=== PATIENT | male | born 1965 | race Caucasian/White ===

== ENCOUNTER 2016-04-29 16:00 | Outpatient (RCR) | payer OTHER | END 2016-04-30 | LOC: M OUTALCOH 16:00 | PROVIDERS: ATTEND Psychiatry & Neurology Psychiatry | DX: F15.20 Other stimulant dependence, uncomplicated (principal); F12.20 Cannabis dependence, uncomplicated ==

== ENCOUNTER 2016-05-22 14:00 | Outpatient (RCR) | payer OTHER | END 2016-05-28 | LOC: M OUTALCOH 14:00 | PROVIDERS: ATTEND Psychiatry & Neurology Psychiatry | DX: F15.20 Other stimulant dependence, uncomplicated (principal); F12.20 Cannabis dependence, uncomplicated ==

== ENCOUNTER 2016-06-27 14:00 | Outpatient (RCR) | payer OTHER | END 2016-06-28 | LOC: M OUTALCOH 14:00 | PROVIDERS: ATTEND Psychiatry & Neurology Psychiatry | DX: F15.20 Other stimulant dependence, uncomplicated (principal); F12.20 Cannabis dependence, uncomplicated ==

== ENCOUNTER → 2016-07-19 | Outpatient (CLI) | payer OTHER | LOC: M OUTALCOH 08:52 | PROVIDERS: ATTEND Psychiatry & Neurology Psychiatry | DX: Z13.9 Encounter for screening, unspecified (principal); F15.20 Other stimulant dependence, uncomplicated; F12.20 Cannabis dependence, uncomplicated ==

== ENCOUNTER → 2016-09-20 | Outpatient (CLI) | payer OTHER ==
--- NOTE | 2016-09-20 15:45 | REP ---
REASON: Possible TB. COMPARISON: 05/26/2015. FINDINGS: The superior mediastinal structures are midline. The cardiac silhouette is unremarkable in size, shape, and position. The diaphragmatic surfaces of the lungs are regular, and the costophrenic angles are clear. The pulmonary carnes are clear. The imaged osseous structures are intact. IMPRESSION: There is no acute cardiopulmonary disease. No change from the prior exam. COMMENT: If clinical suspicion is high, CT is more sensitive. Signed by Arnaud Benitez DO 09/20/2016 04:24 P
== END ==
LOC: M WUC 14:29
PROVIDERS: ATTEND Surgery
DX: Z11.1 Encounter for screening for respiratory tuberculosis (principal)

== ENCOUNTER → 2016-09-27 | Outpatient (CLI) | payer OTHER ==
--- NOTE | 2016-09-27 14:27 | REP ---
Clinical: Pain. Technique: Internal rotation, external rotation, and Y view of the right shoulder. Comparison: 07/15/2014. Findings: Acromioclavicular and glenohumeral joints are intact and stable/normal for age. Calcifications adjacent to the greater tuberosity consistent with calcific tendinopathy and essentially unchanged. Impression: Calcific tendinopathy similar to prior examination. Signed by Feliciano Vergara MD 09/27/2016 02:19 P
== END ==
LOC: M WUC 13:49
PROVIDERS: ATTEND Physician Assistant Medical
DX: M75.31 Calcific tendinitis of right shoulder (principal)

== ENCOUNTER 2017-06-20 21:38 | Emergency (ER) | payer OTHER ==
[2017-06-21 00:21] LABS: CK-MB VALUE MASS < 1.0 NG/ML (<3.6); CPK CREATINE PHOSPHOKINASE 77 U/L (39-308); MB/CK RELATIVE INDEX 1.29 (< OR =4); TROPONIN I < 0.02 NG/ML (< 0.10)
== END 2017-06-21 00:58 | disposition home or self-care (01) ==
LOC: M ED 06-21 00:58
DX: R00.2 Palpitations (principal); J84.10 Pulmonary fibrosis, unspecified
CPT/HCPCS: 70450

== ENCOUNTER → 2018-10-09 | Outpatient (CLI) | payer SELFPAY | LOC: M OUTALCOH 08:27 | PROVIDERS: ATTEND Psychiatry & Neurology Psychiatry | DX: F15.10 Other stimulant abuse, uncomplicated (principal) ==

== ENCOUNTER → 2018-10-28 | Outpatient (RCR) | payer SELFPAY | LOC: M OUTALCOH 10-16 08:39 | PROVIDERS: ATTEND Psychiatry & Neurology Psychiatry | DX: F15.20 Other stimulant dependence, uncomplicated (principal) ==

== ENCOUNTER 2018-11-24 08:00 | Outpatient (RCR) | payer MEDICAID, SELFPAY | END 2018-11-28 | LOC: M OUTALCOH 08:00 | PROVIDERS: ATTEND Psychiatry & Neurology Psychiatry | DX: F15.20 Other stimulant dependence, uncomplicated (principal) ==

== ENCOUNTER 2018-12-10 09:00 | Outpatient (RCR) | payer MEDICAID | END 2018-12-28 | LOC: M OUTALCOH 09:00 | PROVIDERS: ATTEND Psychiatry & Neurology Psychiatry | DX: F15.20 Other stimulant dependence, uncomplicated (principal) ==

== ENCOUNTER → 2019-03-17 | Outpatient (CLI) | payer OTHER ==
--- NOTE | 2019-03-18 08:28 | REP ---
Two-view chest: 03/07/2019. Indication: Possible TB. Comparison: 09/20/2016. Findings: There is no air space consolidation. There is no pleural effusion or pneumothorax. The cardiomediastinal silhouette is unremarkable. Impression: No acute cardiopulmonary process. There is no radiographic evidence of tuberculosis. Electronically Signed by Ziyad Gunderson DO 03/18/2019 08:19 A
== END ==
LOC: M WUC 10:44
PROVIDERS: ATTEND Surgery
DX: A15.9 Respiratory tuberculosis unspecified (principal)

== ENCOUNTER → 2021-05-11 | Outpatient (CLI) | payer OTHER | LOC: M RAD 11:11 | PROVIDERS: ATTEND Physician Assistant | DX: M79.671 Pain in right foot (principal); Y30.XXXA Falling, jumping or pushed from a high place, undetermined intent, initial encounter; Y92.9 Unspecified place or not applicable; Y93.9 Activity, unspecified; Y99.9 Unspecified external cause status ==

== ENCOUNTER 2021-06-30 15:34 | Emergency (ER) | payer OTHER ==
[~2021-06-30] VITALS: Ht 170.2 cm; Wt 78.2 kg
[2021-06-30] MEDS: MORPHINE 4 MG/ML 1ML VIAL/SYRINGE IV PRN ×2 (16:27→17:04)
[2021-06-30 16:31] LABS: BASO # 0.1 10^3/uL (0.0-0.2); BASO % 0.4 % (0.0-1.0); EOS # 0.2 10^3/uL (0.0-0.5); HEMATOCRIT 42.1 % (42.0-52.0); HEMOGLOBIN 14.4 g/dl (13.5-17.5); LYMPH # 3.3 10^3/uL (1.5-5.0); LYMPH % 19.5 % (24.0-44.0); MEAN CORPUSCULAR HEMOGLOBIN 31.4 pg (27.0-33.0); MEAN CORPUSCULAR HGB CONC 34.2 g/dl (32.0-36.5); MEAN CORPUSCULAR VOLUME 91.9 fl (80.0-96.0); MONO # 1.4 10^3/uL (0.0-0.8); MONO % 8.1 % (2.0-8.0); NEUTROPHILS % 70.6 % (36.0-66.0); PLATELET COUNT, AUTOMATED 359 10^3/uL (150-450); RED BLOOD COUNT 4.58 10^6/uL (4.30-6.10)
[2021-06-30 16:50] LABS: INR 0.91; PROTHROMBIN TIME 12.7 SECONDS (12.7-14.5)
[2021-06-30 17:02] LABS: ALBUMIN 3.5 GM/DL (3.2-5.2); BILIRUBIN,DIRECT 0.1 MG/DL (0.0-0.2); BILIRUBIN,TOTAL 0.2 MG/DL (0.2-1.0); TOTAL PROTEIN 7.1 GM/DL (6.4-8.2)
[2021-06-30] MEDS ORDERED: ISOVUE-370 76% 100ML VIAL As Ordered ONE (17:05)
[2021-06-30 17:24] LABS: C REACTIVE PROTEIN QUANTITATIV 3.85 MG/DL (0.00-0.30); URIC ACID 3.3 MG/DL (3.5-7.2)
[2021-06-30 17:37] LABS: ERYTHROCYTE SEDIMENTATION RATE 46 mm/hr (0-20)
[2021-06-30] MEDS ORDERED: MORPHINE 4 MG/ML 1ML VIAL/SYRINGE IV PRN (18:15)
[2021-06-30] MEDS ORDERED: HEPARIN DRIP 25,000 UNITS in IV 1 EA IV SCH (19:05)
[2021-06-30] MEDS ORDERED: HEPARIN SOD (PORCINE) 5000UNITS/ML 1ML VIAL/SYRINGE IV PRN ×2 (19:05→19:25)
[2021-06-30] MEDS ORDERED: HEPARIN SOD (PORCINE) 5000UNITS/ML 1ML VIAL/SYRINGE IV ONE (19:25)
[2021-06-30] MEDS ORDERED: LABETALOL 100MG/20ML VIAL IV STA (19:29)
[2021-06-30] MEDS: HYDROMORPHONE HCL 0.5 MG/ 0.5 ML SYRINGE (J1170 PER 1) IV PRN ×2 (19:34→22:52)
[2021-06-30 20:55] LABS: RSV AMPLIFICATION NEGATIVE (NEGATIVE)
[2021-06-30 23:36] VITALS: BP 152/93
== END 2021-06-30 23:36 | disposition short-term general hospital (02) ==
LOC: M ED 15:34
DX: I70.92 Chronic total occlusion of artery of the extremities (principal); I24.9 Acute ischemic heart disease, unspecified; R94.31 Abnormal electrocardiogram [ECG] [EKG]; F17.200 Nicotine dependence, unspecified, uncomplicated
CPT/HCPCS: 75635; 80076; 83605; 84550; 85025; 85610; 85652; 85730; 86140; 87631; 93005; 96365; 96366; 96375; 99285; J1170; J1644; J2270; Q9967

== ENCOUNTER 2021-07-08 04:20 | Emergency (ER) | payer OTHER ==
[~2021-07-08] VITALS: Ht 167.6 cm; Wt 77.3 kg
[2021-07-08] MEDS ORDERED: TIZA10TA (04:45)
[2021-07-08] MEDS ORDERED: METO1TAB87 (04:45)
[2021-07-08] MEDS ORDERED: ASPI81CH33 (04:45)
[2021-07-08] MEDS ORDERED: OXYC-517 (04:45)
[2021-07-08] MEDS ORDERED: XARE2.5T (04:45)
[2021-07-08] MEDS ORDERED: ATOR40TA75 (04:45)
[2021-07-08] MEDS ORDERED: AMLO1TAB25 (04:45)
[2021-07-08] MEDS ORDERED: ONDANSETRON 4MG/2ML VIAL IV ONE (05:05)
[2021-07-08] MEDS: MORPHINE 4 MG/ML 1ML VIAL/SYRINGE IV PRN ×2 (05:18→06:05)
[2021-07-08 05:32] LABS: BASO # 0.1 10^3/uL (0.0-0.2); BASO % 0.5 % (0.0-1.0); EOS # 0.2 10^3/uL (0.0-0.5); HEMATOCRIT 39.3 % (42.0-52.0); HEMOGLOBIN 13.1 g/dl (13.5-17.5); LYMPH # 3.1 10^3/uL (1.5-5.0); LYMPH % 14.4 % (24.0-44.0); MEAN CORPUSCULAR HEMOGLOBIN 31.1 pg (27.0-33.0); MEAN CORPUSCULAR HGB CONC 33.3 g/dl (32.0-36.5); MEAN CORPUSCULAR VOLUME 93.3 fl (80.0-96.0); MONO % 7.4 % (2.0-8.0); NEUTROPHILS # 15.8 10^3/uL (1.5-8.5); NEUTROPHILS % 74.7 % (36.0-66.0); PLATELET COUNT, AUTOMATED 401 10^3/uL (150-450); RED BLOOD COUNT 4.21 10^6/uL (4.30-6.10); WHITE BLOOD COUNT 21.2 10^3/uL (4.0-10.0)
[2021-07-08 05:35] LABS: MONO # 1.6 10^3/uL (0.0-0.8)
[2021-07-08 05:42] LABS: INR 0.96; PROTHROMBIN TIME 13.2 SECONDS (12.7-14.5)
[2021-07-08 05:43] LABS: PARTIAL THROMBOPLASTIN TIME 35.4 SECONDS (25.9-37.0)
[2021-07-08 06:01] LABS: C REACTIVE PROTEIN QUANTITATIV 12.3 MG/DL (0.00-0.30); CALCIUM LEVEL 9.4 MG/DL (8.5-10.1); CREATININE FOR GFR 1.5 MG/DL (0.70-1.30); GLOMERULAR FILTRATION RATE 51.9 (>56); POTASSIUM SERUM 4.6 MEQ/L (3.5-5.1)
[2021-07-08 06:31] VITALS: BP 170/91
== END 2021-07-08 07:09 | disposition home or self-care (01) ==
LOC: EDBD 04:20 → M ED 04:20
DX: M79.604 Pain in right leg (principal); G89.18 Other acute postprocedural pain; I73.9 Peripheral vascular disease, unspecified; Z79.899 Other long term (current) drug therapy; Z79.82 Long term (current) use of aspirin; Z79.01 Long term (current) use of anticoagulants; F17.210 Nicotine dependence, cigarettes, uncomplicated
CPT/HCPCS: 80048; 85025; 85610; 85730; 86140; 96374; 96375; 96376; 99284; J2270; J2405

== ENCOUNTER 2021-08-17 18:58 | Emergency (ER) | payer OTHER ==
[~2021-08-17] VITALS: Ht 170.2 cm; Wt 74.8 kg
[2021-08-17 18:58] VITALS: BP 146/88
[~2021-08-17 18:58] MED LIST: AMLO1TAB25; ASPI81CH33; ATOR40TA75; METO1TAB87; OXYC-517; TIZA10TA; XARE2.5T
== END 2021-08-17 22:40 | disposition left against medical advice (07) ==
LOC: M ED 18:58
DX: Z53.21 Procedure and treatment not carried out due to patient leaving prior to being seen by health care provider (principal)

== ENCOUNTER 2021-09-02 18:14 | Emergency (ER) | payer OTHER ==
[~2021-09-02] VITALS: Ht 170.2 cm; Wt 77.4 kg
[~2021-09-02 18:14] MED LIST changes: -AMLO1TAB25; +AMLO1TAB25 PO; -ASPI81CH33; +ASPI81CH33 PO; -ATOR40TA75; +ATOR40TA75 PO; -METO1TAB87; +METO1TAB87 PO; -XARE2.5T; +XARE2.5T PO
[2021-09-02 19:51] LABS: BASO # 0.1 10^3/uL (0.0-0.2); BASO % 0.6 % (0.0-1.0); EOS # 0.2 10^3/uL (0.0-0.5); HEMATOCRIT 43.9 % (42.0-52.0); HEMOGLOBIN 14.4 g/dl (13.5-17.5); LYMPH # 2.8 10^3/uL (1.5-5.0); LYMPH % 25.8 % (24.0-44.0); MEAN CORPUSCULAR HEMOGLOBIN 30.6 pg (27.0-33.0); MEAN CORPUSCULAR HGB CONC 32.8 g/dl (32.0-36.5); MEAN CORPUSCULAR VOLUME 93.2 fl (80.0-96.0); MONO # 1.2 10^3/uL (0.0-0.8); MONO % 10.8 % (2.0-8.0); NEUTROPHILS # 6.6 10^3/uL (1.5-8.5); NEUTROPHILS % 60.3 % (36.0-66.0); PLATELET COUNT, AUTOMATED 299 10^3/uL (150-450); RED BLOOD COUNT 4.71 10^6/uL (4.30-6.10)
[2021-09-02 20:15] VITALS: BP 161/98
[2021-09-02] MEDS ORDERED: ISOVUE-370 76% 100ML VIAL As Ordered ONE (20:33)
[2021-09-02] MEDS ORDERED: med rec comment (22:57)
[2021-09-02] MEDS ORDERED: HOME MED LIST COMPLETE! XX SCH (23:00)
[2021-09-02 23:30] LABS: RSV AMPLIFICATION NEGATIVE (NEGATIVE)
[2021-09-03] MEDS ORDERED: PIPERACILLIN/TAZOBACTAM SOD 4.5 GM in D5W MINI-BAG PLUS 50 ML IV ONE ×2
== END 2021-09-03 00:32 | disposition short-term general hospital (02) ==
LOC: M ED 18:14
DX: I96 Gangrene, not elsewhere classified (principal); I10 Essential (primary) hypertension; E78.5 Hyperlipidemia, unspecified; Z79.82 Long term (current) use of aspirin; Z79.899 Other long term (current) drug therapy
CPT/HCPCS: 75635; 80047; 83605; 83735; 85025; 87631; 93971; 96365; 99284; J2543; Q9967

== ENCOUNTER 2021-12-27 18:51 | Emergency (ER) | payer MEDICARE, OTHER ==
[~2021-12-27] VITALS: Ht 170.2 cm; Wt 78.8 kg
[~2021-12-27 18:51] MED LIST changes: +med rec comment
[2021-12-27 19:59] LABS: BASO % 0.4 % (0.0-1.0); EOS # 0.1 10^3/uL (0.0-0.5); EOS % 1.4 % (0.0-3.0); HEMATOCRIT 38.4 % (42.0-52.0); HEMOGLOBIN 12.7 g/dl (13.5-17.5); LYMPH # 2.2 10^3/uL (1.5-5.0); LYMPH % 28.1 % (24.0-44.0); MEAN CORPUSCULAR HEMOGLOBIN 30.4 pg (27.0-33.0); MEAN CORPUSCULAR HGB CONC 33.1 g/dl (32.0-36.5); MEAN CORPUSCULAR VOLUME 91.9 fl (80.0-96.0); MONO # 0.9 10^3/uL (0.0-0.8); NEUTROPHILS # 4.5 10^3/uL (1.5-8.5); NEUTROPHILS % 57.7 % (36.0-66.0); PLATELET COUNT, AUTOMATED 256 10^3/uL (150-450); RED BLOOD COUNT 4.18 10^6/uL (4.30-6.10); WHITE BLOOD COUNT 7.8 10^3/uL (4.0-10.0)
[2021-12-27 20:22] LABS: ERYTHROCYTE SEDIMENTATION RATE 50 mm/hr (0-20)
[2021-12-27] MEDS ORDERED: CEFU50TA PO (21:01)
[2021-12-27] MEDS ORDERED: XARE10TA PO (21:01)
[2021-12-27] MEDS ORDERED: CEFUROXIME 500 MG TAB PO ONE (21:05)
[2021-12-27 21:57] VITALS: BP 160/86
== END 2021-12-27 21:58 | disposition home or self-care (01) ==
LOC: M ED 18:51
DX: L03.115 Cellulitis of right lower limb (principal); I10 Essential (primary) hypertension; E78.5 Hyperlipidemia, unspecified; Z86.73 Personal history of transient ischemic attack (TIA), and cerebral infarction without residual deficits; Z79.82 Long term (current) use of aspirin; Z79.811 Long term (current) use of aromatase inhibitors; Z79.899 Other long term (current) drug therapy

== ENCOUNTER → 2022-10-09 | Outpatient (CLI) | payer MEDICARE ==
[~2022-10-09] MED LIST changes: +CEFU50TA PO; +XARE10TA PO
== END ==
LOC: M WUC 10:03
PROVIDERS: ATTEND Surgery
DX: A15.0 Tuberculosis of lung (principal)

== ENCOUNTER 2024-01-17 06:22 | Emergency (ER) | payer MEDICAID, MEDICARE, OTHER, SELFPAY ==
[~2024-01-17] VITALS: Ht 167.6 cm; Wt 75.0 kg
[2024-01-17] MEDS: ACETAMINOPHEN 325 MG TAB PO ONE (08:24)
[2024-01-17 10:13] LABS: BASO % 0.3 % (0.0-1.0); EOS # 0.1 10^3/uL (0.0-0.5); EOS % 0.7 % (0.0-3.0); HEMATOCRIT 43.6 % (42.0-52.0); HEMOGLOBIN 14.3 g/dl (13.5-17.5); LYMPH # 2.7 10^3/uL (1.5-5.0); LYMPH % 20.5 % (24.0-44.0); MEAN CORPUSCULAR HEMOGLOBIN 30.8 pg (27.0-33.0); MEAN CORPUSCULAR HGB CONC 32.8 g/dl (32.0-36.5); MEAN CORPUSCULAR VOLUME 93.8 fl (80.0-96.0); MONO # 1.2 10^3/uL (0.0-0.8); NEUTROPHILS # 9.2 10^3/uL (1.5-8.5); NEUTROPHILS % 69.2 % (36.0-66.0); PLATELET COUNT, AUTOMATED 252 10^3/uL (150-450); RED BLOOD COUNT 4.65 10^6/uL (4.30-6.10); WHITE BLOOD COUNT 13.2 10^3/uL (4.0-10.0)
[2024-01-17] MEDS ORDERED: ISOVUE-370 76% 100ML VIAL As Ordered ONE (10:13)
[2024-01-17 10:27] LABS: INR 1.03; PARTIAL THROMBOPLASTIN TIME 27.9 SECONDS (24.8-34.2); PROTHROMBIN TIME 13.2 SECONDS (12.5-14.5)
[2024-01-17] MEDS ORDERED: ACETAMINOPHEN 500 MG TAB PO ONE (11:35)
[2024-01-17] MEDS: KETOROLAC 30 MG/ML 1ML VIAL IV ONE (12:25)
[2024-01-17 14:54] VITALS: BP 134/80; TEMP 97.2; O2SAT 99
== END 2024-01-17 14:55 | disposition short-term general hospital (02) ==
LOC: M ED 06:22
DX: I74.5 Embolism and thrombosis of iliac artery (principal); F17.200 Nicotine dependence, unspecified, uncomplicated; Z86.73 Personal history of transient ischemic attack (TIA), and cerebral infarction without residual deficits; Z79.82 Long term (current) use of aspirin; Z79.02 Long term (current) use of antithrombotics/antiplatelets; Z79.899 Other long term (current) drug therapy; Z79.01 Long term (current) use of anticoagulants
CPT/HCPCS: 75635; 80047; 85025; 85610; 85730; 93971; 96374; 99284; J1885; Q9967

== ENCOUNTER 2024-01-22 13:02 | Emergency (ER) | payer MEDICAID ==
[~2024-01-22] VITALS: Ht 167.6 cm; Wt 75.4 kg
[2024-01-22] MEDS ORDERED: MM S100C PO (14:19)
[2024-01-22] MEDS ORDERED: CLOP75TA99 PO (14:19)
[2024-01-22] MEDS ORDERED: SENN1TAB85 PO (14:19)
[2024-01-22] MEDS ORDERED: XARE20TA PO (14:19)
[2024-01-22 14:39] LABS: HEMATOCRIT 36.2 % (42.0-52.0); HEMOGLOBIN 12.1 g/dl (13.5-17.5); MEAN CORPUSCULAR HEMOGLOBIN 31.3 pg (27.0-33.0); MEAN CORPUSCULAR HGB CONC 33.4 g/dl (32.0-36.5); MEAN CORPUSCULAR VOLUME 93.5 fl (80.0-96.0); PLATELET COUNT, AUTOMATED 253 10^3/uL (150-450); RED BLOOD COUNT 3.87 10^6/uL (4.30-6.10); WHITE BLOOD COUNT 11.5 10^3/uL (4.0-10.0)
[2024-01-22 16:00] VITALS: BP 138/79
[2024-01-22 16:01] VITALS: TEMP 99.7; O2SAT 97
== END 2024-01-22 16:07 | disposition home or self-care (01) ==
LOC: M ED 13:02
DX: L76.32 Postprocedural hematoma of skin and subcutaneous tissue following other procedure (principal); I10 Essential (primary) hypertension; F17.200 Nicotine dependence, unspecified, uncomplicated; Z86.718 Personal history of other venous thrombosis and embolism; Z79.01 Long term (current) use of anticoagulants; Z86.79 Personal history of other diseases of the circulatory system; Z79.02 Long term (current) use of antithrombotics/antiplatelets; Z79.899 Other long term (current) drug therapy

== ENCOUNTER 2024-04-26 15:02 | Emergency (ER) | payer MEDICAID, SELFPAY ==
[~2024-04-26] VITALS: Ht 170.2 cm; Wt 74.3 kg
[~2024-04-26 15:02] MED LIST changes: +CLOP75TA99 PO; +MM S100C PO; +SENN1TAB85 PO; +XARE20TA PO
[2024-04-26 22:46] LABS: BASO # 0.1 10^3/uL (0.0-0.2); BASO % 0.4 % (0.0-1.0); EOS # 0.2 10^3/uL (0.0-0.5); EOS % 1.4 % (0.0-3.0); HEMATOCRIT 42.5 % (42.0-52.0); LYMPH # 3.8 10^3/uL (1.5-5.0); LYMPH % 33.7 % (24.0-44.0); MEAN CORPUSCULAR HEMOGLOBIN 30.9 pg (27.0-33.0); MEAN CORPUSCULAR HGB CONC 32.9 g/dl (32.0-36.5); MEAN CORPUSCULAR VOLUME 93.8 fl (80.0-96.0); MONO # 0.9 10^3/uL (0.0-0.8); MONO % 7.9 % (2.0-8.0); NEUTROPHILS # 6.4 10^3/uL (1.5-8.5); NEUTROPHILS % 56.4 % (36.0-66.0); PLATELET COUNT, AUTOMATED 341 10^3/uL (150-450); RED BLOOD COUNT 4.53 10^6/uL (4.30-6.10); WHITE BLOOD COUNT 11.4 10^3/uL (4.0-10.0)
[2024-04-26 22:50] LABS: ERYTHROCYTE SEDIMENTATION RATE 28 mm/hr (0-20)
[2024-04-26 23:11] LABS: C REACTIVE PROTEIN QUANTITATIV 0.95 MG/DL (<1.0)
[2024-04-26 23:12] LABS: ALBUMIN 3.5 G/DL (3.2-5.2); ALKALINE PHOSPHATASE 119 U/L (40-129); ALT/SGPT 14 U/L (7.0-40); AST/SGOT 17 U/L (<34); BILIRUBIN,DIRECT < 0.1 MG/DL (<0.4); BILIRUBIN,TOTAL 0.3 MG/DL (0.3-1.2); BLOOD UREA NITROGEN 13 MG/DL (9-23); CARBON DIOXIDE LEVEL 28 MMOL/L (20-31); CHLORIDE LEVEL 107 MMOL/L (98-107); CREATININE FOR GFR 0.97 MG/DL (0.70-1.30); GLOMERULAR FILTRATION RATE > 60.0 (>56); GLUCOSE, FASTING 91 MG/DL (60-100); POTASSIUM SERUM 4.4 MMOL/L (3.5-5.1); SODIUM LEVEL 143 MMOL/L (136-145); TOTAL PROTEIN 7.1 G/DL (5.7-8.2)
[2024-04-26 23:18] LABS: PROCALCITONIN 0.07 ng/ml
[2024-04-26 23:20] LABS: INR 1.03; PARTIAL THROMBOPLASTIN TIME 29.5 SECONDS (24.8-34.2); PROTHROMBIN TIME 13.8 SECONDS (12.5-14.5)
[2024-04-26] MEDS ORDERED: ISOVUE-370 76% 100ML VIAL As Ordered ONE (23:21)
[2024-04-27] MEDS: MORPHINE 4 MG/ML 1ML VIAL IV ONE ×2 (01:04→08:23)
[2024-04-27] MEDS ORDERED: HEPARIN SOD (PORCINE) 5000UNITS/ML 1ML VIAL/SYRINGE IV PRN (02:45)
[2024-04-27] MEDS: HEPARIN DRIP 25,000 UNITS in IV 1 EA IV SCH (03:21)
[2024-04-27 08:13] VITALS: BP 176/74; TEMP 97.1
[2024-04-27 08:23] VITALS: O2SAT 95
== END 2024-04-27 08:14 | disposition short-term general hospital (02) ==
LOC: M ED 15:02
DX: I70.8 Atherosclerosis of other arteries (principal); I70.92 Chronic total occlusion of artery of the extremities; N20.0 Calculus of kidney; I74.5 Embolism and thrombosis of iliac artery; I70.211 Atherosclerosis of native arteries of extremities with intermittent claudication, right leg; J84.112 Idiopathic pulmonary fibrosis; E78.5 Hyperlipidemia, unspecified; F17.200 Nicotine dependence, unspecified, uncomplicated; F19.11 Other psychoactive substance abuse, in remission; Z86.79 Personal history of other diseases of the circulatory system; Z79.02 Long term (current) use of antithrombotics/antiplatelets; Z79.899 Other long term (current) drug therapy
CPT/HCPCS: 73660; 75635; 80048; 80076; 83735; 84145; 85025; 85610; 85652; 85730; 86140; 87400; 93971; 96365; 96366; 96375; 96376; 99284; Q9967

== ENCOUNTER → 2024-07-12 | Outpatient (REF) | payer SELFPAY, MEDICAID, OTHER ==
[~2024-07-12] MED LIST changes: +ECOT81TA5 PO
[2024-07-12 18:43] LABS: THYROID STIMULATING HORMONE 1.358 uIU/ML (0.55-4.78); TOTAL 25(OH) VITAMIN D 16.5 NG/ML (20.0-100.0)
[2024-07-12 18:46] LABS: ALBUMIN 3.2 G/DL (3.2-5.2); ALKALINE PHOSPHATASE 115 U/L (40-129); ALT/SGPT 34 U/L (7.0-40); AST/SGOT 35 U/L (<34); BILIRUBIN,TOTAL 0.5 MG/DL (0.3-1.2); BLOOD UREA NITROGEN 17 MG/DL (9-23); CALCIUM LEVEL 9.4 MG/DL (8.5-10.1); CARBON DIOXIDE LEVEL 26 MMOL/L (20-31); CHLORIDE LEVEL 106 MMOL/L (98-107); CHOLESTEROL LEVEL 131 MG/DL (<200); CREATININE FOR GFR 1.01 MG/DL (0.70-1.30); GLOMERULAR FILTRATION RATE 86.7 (>56); GLUCOSE, FASTING 76 MG/DL (60-100); HDL CHOLESTEROL 37.4 MG/DL (>40); LDL CHOLESTEROL 59.8 MG/DL (<100); NON-HDL-C 93.6 MG/DL; POTASSIUM SERUM 3.9 MMOL/L (3.5-5.1); SODIUM LEVEL 141 MMOL/L (136-145); TOTAL PROTEIN 6.4 G/DL (5.7-8.2); TRIGLYCERIDES LEVEL 169 MG/DL (<150)
[2024-07-12 18:52] LABS: HEMOGLOBIN A1c 5.4 % (4.0-6.0)
[2024-07-12 19:08] LABS: HIV 1&2 SCREEN NEGATIVE (NEGATIVE)
[2024-07-12 19:15] LABS: HEPATITIS C VIRUS ABY INDEX 0.05 INDEX (<0.8)
== END ==
LOC: M LAB REF 17:48
PROVIDERS: ATTEND Physician Assistant
DX: E78.5 Hyperlipidemia, unspecified (principal); K59.09 Other constipation; Z11.9 Encounter for screening for infectious and parasitic diseases, unspecified; E55.9 Vitamin D deficiency, unspecified

== ENCOUNTER → 2024-09-29 | Outpatient (CLI) | payer OTHER | LOC: M RAD 13:49 | PROVIDERS: ATTEND Surgery | DX: I70.211 Atherosclerosis of native arteries of extremities with intermittent claudication, right leg (principal) ==

== ENCOUNTER 2024-11-07 13:30 | Inpatient (IN) | payer OTHER ==
[~2024-11-07] VITALS: Ht 170.2 cm; Wt 84.4 kg
[2024-11-07 14:09] LABS: BASO # 0.1 10^3/uL (0.0-0.2); BASO % 0.5 % (0.0-1.0); EOS # 0.2 10^3/uL (0.0-0.5); EOS % 1.6 % (0.0-3.0); LYMPH # 2.1 10^3/uL (1.5-5.0); LYMPH % 16.7 % (24.0-44.0); MONO # 0.9 10^3/uL (0.0-0.8); MONO % 6.9 % (2.0-8.0); NEUTROPHILS # 9.4 10^3/uL (1.5-8.5); NEUTROPHILS % 73.8 % (36.0-66.0); PLATELET COUNT, AUTOMATED 428 10^3/uL (150-450)
[2024-11-07 14:31] LABS: ERYTHROCYTE SEDIMENTATION RATE 69 mm/hr (0-20)
[2024-11-07 14:38] LABS: C REACTIVE PROTEIN QUANTITATIV 5.13 MG/DL (<1.0); CALCIUM LEVEL 9.9 MG/DL (8.5-10.1); CARBON DIOXIDE LEVEL 28.0 MMOL/L (20-31); CHLORIDE LEVEL 108.0 MMOL/L (98-107); CREATININE FOR GFR 1.15 MG/DL (0.70-1.30); GLOMERULAR FILTRATION RATE 74.2 (>56); POTASSIUM SERUM 4.3 MMOL/L (3.5-5.1); SODIUM LEVEL 148.0 MMOL/L (136-145)
[2024-11-07] MEDS ORDERED: ISOVUE-370 76% 100 ML VIAL As Ordered ONE (15:41)
[2024-11-07 16:11] LABS: ALT/SGPT 20.0 U/L (7.0-40); AST/SGOT 21.0 U/L (<34)
[2024-11-07] MEDS: amLODIPine 5 MG TAB PO ONE (16:11)
[2024-11-07] MEDS: MORPHINE 4 MG/ML 1 ML VIAL IV PRN ×2 (16:13→21:45)
[2024-11-07 17:12] LABS: INR 0.93
[2024-11-07] MEDS: VANCOMYCIN HCL 2,000 MG, VIAL MATE ADAPTER 1 EACH in NS 500 ML IV ONE (17:44)
[2024-11-07] MEDS ORDERED: PREG75CA3 PO (18:35)
[2024-11-07] MEDS ORDERED: GABA-284 PO (18:35)
[2024-11-07] MEDS ORDERED: SENN-186 PO (18:35)
[2024-11-07] MEDS ORDERED: CILO100T3 PO (18:35)
[2024-11-07] MEDS ORDERED: AMLO1TAB24 PO (18:35)
[2024-11-07] MEDS ORDERED: DOCU100C16 PO (18:35)
[2024-11-07] MEDS ORDERED: AMOX500T2 PO (18:35)
[2024-11-07] MEDS ORDERED: HOME MED LIST COMPLETE! XX SCH (18:35)
[2024-11-07] MEDS: LR 1,000 ML IV SCH (19:22)
[2024-11-07 19:58] LABS: ESTIMATED AVERAGE GLUCOSE 126.0 MG/DL (60-110)
[2024-11-07] MEDS: GABAPENTIN 400 MG CAP PO SCH (21:44)
[2024-11-07] MEDS: SENNA 8.6 MG TAB PO SCH (21:45)
[2024-11-07] MEDS: CILOSTAZOL 100 MG TAB PO SCH (21:45)
[2024-11-07] MEDS: ACETAMINOPHEN 500 MG TAB PO SCH (21:45)
[2024-11-08] MEDS: PIPERACILLIN/TAZOBACTAM SOD 3.375 GM in DEXTROSE 5% (D5W) ADV/MINI-BAG 50 ML IV SCH (00:12)
[2024-11-08] MEDS ORDERED: PILL CUTTER 1 EACH XX PRN (00:45)
[2024-11-08] MEDS: VANCOMYCIN HCL 1,000 MG, VIAL MATE ADAPTER 1 EACH in NS 250 ML IV SCH (04:14)
[2024-11-08 07:11] LABS: PLATELET COUNT, AUTOMATED 409 10^3/uL (150-450)
[2024-11-08 08:03] LABS: ALT/SGPT 16.0 U/L (7.0-40); AST/SGOT 18.0 U/L (<34); CALCIUM LEVEL 9.0 MG/DL (8.5-10.1); CARBON DIOXIDE LEVEL 27.0 MMOL/L (20-31); CHLORIDE LEVEL 108.0 MMOL/L (98-107); CREATININE FOR GFR 1.14 MG/DL (0.70-1.30); GLOMERULAR FILTRATION RATE 75.0 (>56); IRON (FE) 54.0 UG/DL (65-175); PERCENT SATURATION 18.9 % (19.7-50.0); POTASSIUM SERUM 4.5 MMOL/L (3.5-5.1); SODIUM LEVEL 144.0 MMOL/L (136-145); VITAMIN B12 LEVEL 261.0 PG/ML (211-911)
[2024-11-08] MEDS: ATORVASTATIN 20 MG TAB PO SCH (08:44)
[2024-11-08] MEDS: amLODIPine 5 MG TAB PO SCH (08:44)
[2024-11-08] MEDS: ASPIRIN 81 MG ENTERIC TABLET PO SCH (08:45)
[2024-11-08] MEDS: PANTOPRAZOLE 20 MG TAB PO SCH (11:22)
[2024-11-08] MEDS ORDERED: PROHANCE 279.3MG/ML 15ML VIAL As Ordered ONE (12:05)
[2024-11-08] MEDS ORDERED: PROHANCE 279.3MG/ML 5ML VIAL As Ordered ONE (12:05)
[2024-11-08 16:06] VITALS: BP 150/87; TEMP 97.5; O2SAT 97
[2024-11-08] MEDS: LIDOCAINE 2% MDV 20 ML VIAL As Ordered ONE (17:14)
[2024-11-08] MEDS ORDERED: MIDAZOLAM INJ 2 MG/2 ML VIAL As Ordered ONE (19:19)
[2024-11-08] MEDS ORDERED: LIDOCAINE 2% 100 MG/5 ML SDV (FOR ANES.) As Ordered ONE (19:20)
[2024-11-08] MEDS: GENTAMICIN SULF 80 MG/2 ML VIAL As Ordered ONE (19:45)
[2024-11-08] MEDS ORDERED: KETOROLAC 30 MG/ML 1 ML VIAL As Ordered ONE (19:58)
[2024-11-08] MEDS ORDERED: ACETAMINOPHEN 1000MG/100ML IV BAG As Ordered ONE (19:58)
[2024-11-08 20:37] VITALS: BP 141/86; TEMP 97.5; O2SAT 96
[2024-11-08] MEDS: NS (Normal Saline) 0.9% 1,000 ML IV SCH (20:57)
[2024-11-08 21:07] VITALS: BP 139/83; TEMP 97.5; O2SAT 95
[2024-11-08 21:37] VITALS: BP 131/79; TEMP 97.9; O2SAT 94
[2024-11-08 23:37] VITALS: BP 125/74; TEMP 97; O2SAT 96
[2024-11-09] VITALS (9 sets, daily range): BP systolic 125–154; BP diastolic 70–88; TEMP 97.5–97.9; O2SAT 94–97
[2024-11-09 06:44] LABS: CALCIUM LEVEL 8.9 MG/DL (8.5-10.1); CARBON DIOXIDE LEVEL 25.0 MMOL/L (20-31); CHLORIDE LEVEL 108.0 MMOL/L (98-107); CREATININE FOR GFR 1.28 MG/DL (0.70-1.30); GLOMERULAR FILTRATION RATE 65.3 (>56); MAGNESIUM LEVEL 2.0 MG/DL (1.8-2.4); POTASSIUM SERUM 4.1 MMOL/L (3.5-5.1); SODIUM LEVEL 143.0 MMOL/L (136-145)
[2024-11-09] MEDS ORDERED: NALOXONE INJ 0.4 MG/1 ML VIAL IV PRN (20:15)
[2024-11-09] MEDS: METHOCARBAMOL 1,000 MG/10 ML VIAL IV ONE (21:33)
[2024-11-10] MEDS ORDERED: HYDROMORPHONE HCL 0.5 MG/0.5 ML SYRINGE IV PRN ×2 (03:30→13:00)
[2024-11-10] MEDS: HYDROMORPHONE HCL 0.5 MG/0.5 ML SYRINGE IV PRN (03:49)
[2024-11-10 03:57] VITALS: BP 143/92; TEMP 97.9; O2SAT 93
[2024-11-10 04:11] VITALS: O2SAT 91
[2024-11-10] MEDS: DOXYCYCLINE HYCLATE 100 MG TABLET PO SCH (09:30)
[2024-11-10] MEDS: CLOPIDOGREL 75 MG TAB PO SCH (09:30)
[2024-11-10 11:29] VITALS: BP 158/92; TEMP 98.1; O2SAT 93
[2024-11-10] MEDS: KETOROLAC 30 MG/ML 1 ML VIAL IV PRN (15:25)
[2024-11-10] MEDS: RIVAROXABAN 20MG TAB PO SCH (17:10)
[2024-11-10 19:58] VITALS: BP 161/85; TEMP 97.9; O2SAT 94
[2024-11-11 03:31] VITALS: BP 141/90; TEMP 97.5; O2SAT 95
[2024-11-11 07:17] VITALS: O2SAT 95
[2024-11-11 08:49] VITALS: BP 156/87
[2024-11-11] MEDS ORDERED: DOXY100T PO (11:54)
[2024-11-11] MEDS ORDERED: OXYC-517 PO (11:54)
[2024-11-11] MEDS ORDERED: PANT20TA51 PO (11:54)
[2024-11-11] MEDS ORDERED: LEVO1TAB39 PO (11:54)
[2024-11-11] MEDS ORDERED: KETO-204 PO (12:04)
== END 2024-11-11 13:00 | disposition home or self-care (01) | DRG 710 ==
LOC: M ED 13:30 → M ED INP 23:22 → M MSPAV 11-08 15:48
PROVIDERS: ADMIT Student in an Organized Health Care Education/Training Program; ATTEND Student in an Organized Health Care Education/Training Program
PROC: 0Y6Q0Z0 Detachment at Left 1st Toe, Complete, Open Approach (ICD-10-PCS; principal; 2024-11-08 16:30)
DX: A41.9 Sepsis, unspecified organism (principal); E87.0 Hyperosmolality and hypernatremia; L03.115 Cellulitis of right lower limb; L97.519 Non-pressure chronic ulcer of other part of right foot with unspecified severity; E78.5 Hyperlipidemia, unspecified; I12.9 Hypertensive chronic kidney disease with stage 1 through stage 4 chronic kidney disease, or unspecified chronic kidney disease; M86.8X7 Other osteomyelitis, ankle and foot; Z86.73 Personal history of transient ischemic attack (TIA), and cerebral infarction without residual deficits; I73.9 Peripheral vascular disease, unspecified; G89.29 Other chronic pain; K59.00 Constipation, unspecified; F17.210 Nicotine dependence, cigarettes, uncomplicated; I77.1 Stricture of artery; N18.2 Chronic kidney disease, stage 2 (mild); Z68.29 Body mass index [BMI] 29.0-29.9, adult; E66.3 Overweight; D50.9 Iron deficiency anemia, unspecified; Z79.899 Other long term (current) drug therapy; Z79.52 Long term (current) use of systemic steroids; K76.0 Fatty (change of) liver, not elsewhere classified

== ENCOUNTER 2024-12-21 18:02 | Inpatient (IN) | payer MEDICAID, OTHER ==
[~2024-12-21] VITALS: Ht 167.6 cm; Wt 88.2 kg
[~2024-12-21 18:02] MED LIST changes: +AMLO1TAB24 PO; +AMOX500T2 PO; +CILO100T3 PO; +DOCU100C16 PO; +DOXY100T PO; +GABA-284 PO; +KETO-204 PO; +LEVO1TAB39 PO; +OXYC-517 PO; +PANT20TA51 PO; +PREG75CA3 PO; +SENN-186 PO
[2024-12-21 20:22] LABS: BASO # 0.1 10^3/uL (0.0-0.2); BASO % 0.4 % (0.0-1.0); EOS # 0.2 10^3/uL (0.0-0.5); EOS % 1.2 % (0.0-3.0); LYMPH # 2.5 10^3/uL (1.5-5.0); LYMPH % 16.9 % (24.0-44.0); MONO # 1.3 10^3/uL (0.0-0.8); MONO % 9.0 % (2.0-8.0); NEUTROPHILS # 10.6 10^3/uL (1.5-8.5); NEUTROPHILS % 72.0 % (36.0-66.0); PLATELET COUNT, AUTOMATED 433 10^3/uL (150-450)
[2024-12-21 20:36] LABS: ERYTHROCYTE SEDIMENTATION RATE 48 mm/hr (0-20)
[2024-12-21 20:56] LABS: ALT/SGPT 18 U/L (7.0-40); AST/SGOT 20 U/L (<34); C REACTIVE PROTEIN QUANTITATIV 2.06 MG/DL (<1.0); CALCIUM LEVEL 8.7 MG/DL (8.5-10.1); CARBON DIOXIDE LEVEL 24 MMOL/L (20-31); CHLORIDE LEVEL 108 MMOL/L (98-107); CREATININE FOR GFR 1.07 MG/DL (0.70-1.30); GLOMERULAR FILTRATION RATE 80.9 (>56); POTASSIUM SERUM 4.3 MMOL/L (3.5-5.1); SODIUM LEVEL 138 MMOL/L (136-145)
[2024-12-21] MEDS: ACETAMINOPHEN 325 MG TAB PO ONE (21:20)
[2024-12-21] MEDS: VANCOMYCIN HCL 1,750 MG, VIAL MATE ADAPTER 1 EACH in NS 500 ML IV ONE (22:21)
[2024-12-21] MEDS ORDERED: ACET-907 PO (22:24)
[2024-12-21] MEDS ORDERED: [UNRECOGNIZED DRUG - CODE] PO (22:25)
[2024-12-21] MEDS ORDERED: VITA200012 PO (22:25)
[2024-12-21] MEDS ORDERED: HOME MED LIST COMPLETE! XX SCH (22:30)
[2024-12-21] MEDS ORDERED: NICOTINE POLACRILEX 2 MG GUM PO PRN (23:20)
[2024-12-21] MEDS ORDERED: VANCOMYCIN HCL IV SCH (23:20)
[2024-12-21] MEDS ORDERED: FLUID PLACE HOLDER IV SCH (23:20)
[2024-12-22] VITALS (11 sets, daily range): BP systolic 117–157; BP diastolic 69–87; TEMP 96.7–97.3; O2SAT 95–97
[2024-12-22] MEDS ORDERED: NALOXONE INJ 0.4 MG/1 ML VIAL IV PRN (00:05)
[2024-12-22 01:00] LABS: INR 1.0
[2024-12-22] MEDS: PERCOCET 5MG/325MG TAB PO PRN ×2 (01:39→15:21)
[2024-12-22] MEDS: VANCOMYCIN HCL 1,250 MG, VIAL MATE ADAPTER 1 EACH in NS 250 ML IV SCH (04:14)
[2024-12-22 06:17] LABS: PLATELET COUNT, AUTOMATED 404 10^3/uL (150-450)
[2024-12-22] MEDS: HEPARIN SOD 5000 UNITS/ML 1 ML VIAL/SYRINGE SC SCH (06:22)
[2024-12-22 06:32] LABS: ALT/SGPT 17.0 U/L (7.0-40); AST/SGOT 16.0 U/L (<34); CALCIUM LEVEL 8.5 MG/DL (8.5-10.1); CARBON DIOXIDE LEVEL 27.0 MMOL/L (20-31); CHLORIDE LEVEL 107.0 MMOL/L (98-107); CREATININE FOR GFR 1.12 MG/DL (0.70-1.30); GLOMERULAR FILTRATION RATE 76.6 (>56); MAGNESIUM LEVEL 1.8 MG/DL (1.8-2.4); POTASSIUM SERUM 4.2 MMOL/L (3.5-5.1); SODIUM LEVEL 139.0 MMOL/L (136-145)
[2024-12-22] MEDS: PREGABALIN 75 MG CAP PO SCH (08:05)
[2024-12-22] MEDS: amLODIPine 5 MG TAB PO SCH (08:05)
[2024-12-22] MEDS: DOCUSATE SODIUM 100 MG CAPSULE PO SCH (08:07)
[2024-12-22] MEDS: CILOSTAZOL 100 MG TAB PO SCH (09:54)
[2024-12-22] MEDS ORDERED: PROHANCE 279.3MG/ML 15ML VIAL As Ordered ONE (13:37)
[2024-12-22] MEDS: CEFEPIME HCL 2 GM in DEXTROSE 5% (D5W) ADV/MINI-BAG 50 ML IV SCH (15:15)
[2024-12-22] MEDS ORDERED: LIDOCAINE 2% 100 MG/5 ML SDV (FOR ANES.) As Ordered ONE (16:12)
[2024-12-22] MEDS ORDERED: MIDAZOLAM INJ 2 MG/2 ML VIAL As Ordered ONE (16:13)
[2024-12-22] MEDS: LIDOCAINE 2% MDV 20 ML VIAL As Ordered ONE (17:18)
[2024-12-22] MEDS: GENTAMICIN SULF 80 MG/2 ML VIAL As Ordered ONE (17:18)
[2024-12-22] MEDS ORDERED: ONDANSETRON 4MG 2ML VIAL As Ordered ONE (17:42)
[2024-12-22] MEDS ORDERED: HYDROMORPHONE HCL 0.5 MG/0.5 ML SYRINGE IV PRN (17:50)
[2024-12-22] MEDS ORDERED: ONDANSETRON 4MG 2ML VIAL IV PRN (17:50)
[2024-12-22] MEDS: LR 1,000 ML IV SCH (17:50)
[2024-12-22] MEDS: VANCOMYCIN HCL 1,000 MG, VIAL MATE ADAPTER 1 EACH in NS 250 ML IV SCH (19:04)
[2024-12-22] MEDS: ATORVASTATIN 20 MG TAB PO SCH (20:14)
[2024-12-22] MEDS: SENNA 8.6 MG TAB PO SCH (20:15)
[2024-12-23] VITALS (7 sets, daily range): BP systolic 122–173; BP diastolic 77–97; TEMP 97–97.7; O2SAT 94–97
[2024-12-23 08:38] LABS: CALCIUM LEVEL 8.3 MG/DL (8.5-10.1); CARBON DIOXIDE LEVEL 23.0 MMOL/L (20-31); CHLORIDE LEVEL 108.0 MMOL/L (98-107); CREATININE FOR GFR 1.17 MG/DL (0.70-1.30); GLOMERULAR FILTRATION RATE 72.7 (>56); POTASSIUM SERUM 4.5 MMOL/L (3.5-5.1); SODIUM LEVEL 138.0 MMOL/L (136-145)
[2024-12-23] MEDS: PERCOCET 5MG/325MG TAB PO ONE (13:58)
[2024-12-23] MEDS: KETOROLAC 30 MG/ML 1 ML VIAL IV ONE ×2 (14:16→22:45)
[2024-12-24] VITALS (7 sets, daily range): BP systolic 129–170; BP diastolic 80–92; TEMP 97.2–97.9; O2SAT 94–97
[2024-12-24] MEDS: AUGMENTIN 875 MG TAB PO SCH (10:47)
[2024-12-25] MEDS: KETOROLAC 30 MG/ML 1 ML VIAL IV ONE (01:13)
[2024-12-25 04:05] VITALS: BP 149/79; TEMP 97.5; O2SAT 92
[2024-12-25 14:00] VITALS: BP 134/82; TEMP 97.7; O2SAT 93
[2024-12-25 16:00] VITALS: BP 154/90; TEMP 97.6; O2SAT 95
[2024-12-25] MEDS: ACETAMINOPHEN 325 MG TAB PO PRN (18:43)
[2024-12-25 19:19] VITALS: BP 151/90; TEMP 97.9; O2SAT 96
[2024-12-25 23:59] VITALS: BP 152/88; TEMP 97.7; O2SAT 100
[2024-12-26 04:10] VITALS: BP 120/69; TEMP 97.7; O2SAT 93
[2024-12-26 08:57] LABS: BASO # 0.1 10^3/uL (0.0-0.2); BASO % 0.7 % (0.0-1.0); EOS # 0.3 10^3/uL (0.0-0.5); EOS % 3.7 % (0.0-3.0); LYMPH # 2.7 10^3/uL (1.5-5.0); LYMPH % 30.1 % (24.0-44.0); MONO # 1.0 10^3/uL (0.0-0.8); MONO % 11.6 % (2.0-8.0); NEUTROPHILS # 4.7 10^3/uL (1.5-8.5); NEUTROPHILS % 53.4 % (36.0-66.0); PLATELET COUNT, AUTOMATED 308 10^3/uL (150-450)
[2024-12-26 09:19] LABS: CALCIUM LEVEL 9.3 MG/DL (8.5-10.1); CARBON DIOXIDE LEVEL 27.0 MMOL/L (20-31); CHLORIDE LEVEL 106.0 MMOL/L (98-107); CREATININE FOR GFR 1.28 MG/DL (0.70-1.30); GLOMERULAR FILTRATION RATE 65.3 (>56); POTASSIUM SERUM 4.6 MMOL/L (3.5-5.1); SODIUM LEVEL 141.0 MMOL/L (136-145)
[2024-12-26 10:00] VITALS: BP 133/88; TEMP 97.7; O2SAT 96
[2024-12-26 13:26] VITALS: BP 135/91; TEMP 97.9; O2SAT 95
[2024-12-26 18:00] VITALS: BP 144/86; TEMP 97.7; O2SAT 96
[2024-12-26 19:27] VITALS: BP 159/88; TEMP 97.7; O2SAT 93
[2024-12-27] VITALS: BP 150/88; TEMP 97.7; O2SAT 95
[2024-12-27 04:00] VITALS: BP 148/86; TEMP 97.5; O2SAT 91
[2024-12-27 06:46] LABS: BASO # 0.1 10^3/uL (0.0-0.2); BASO % 0.7 % (0.0-1.0); EOS # 0.3 10^3/uL (0.0-0.5); EOS % 3.6 % (0.0-3.0); LYMPH # 2.4 10^3/uL (1.5-5.0); LYMPH % 27.2 % (24.0-44.0); MONO # 1.1 10^3/uL (0.0-0.8); MONO % 13.0 % (2.0-8.0); NEUTROPHILS # 4.8 10^3/uL (1.5-8.5); NEUTROPHILS % 55.0 % (36.0-66.0); PLATELET COUNT, AUTOMATED 345 10^3/uL (150-450)
[2024-12-27 07:19] LABS: CALCIUM LEVEL 9.1 MG/DL (8.5-10.1); CARBON DIOXIDE LEVEL 26.0 MMOL/L (20-31); CHLORIDE LEVEL 104.0 MMOL/L (98-107); CREATININE FOR GFR 1.24 MG/DL (0.70-1.30); GLOMERULAR FILTRATION RATE 67.8 (>56); POTASSIUM SERUM 4.3 MMOL/L (3.5-5.1); SODIUM LEVEL 140.0 MMOL/L (136-145)
[2024-12-27 08:40] VITALS: BP 148/87
[2024-12-27 08:47] VITALS: BP 148/87; TEMP 97.5; O2SAT 97
[2024-12-27] MEDS ORDERED: PERCOCET PO (10:45)
[2024-12-27] MEDS ORDERED: CEFA500C2 PO (10:55)
== END 2024-12-27 12:45 | disposition home or self-care (01) | DRG 720 ==
LOC: M ED 18:02 → M ED INP 23:19 → M PCU 12-22 01:02 → M MS5PR 12-22 21:35
PROVIDERS: ADMIT Student in an Organized Health Care Education/Training Program; ATTEND Student in an Organized Health Care Education/Training Program
PROC: 0QBQ0ZX Excision of Right Toe Phalanx, Open Approach, Diagnostic (ICD-10-PCS; principal; 2024-12-22 16:00)
DX: A41.9 Sepsis, unspecified organism (principal); I12.9 Hypertensive chronic kidney disease with stage 1 through stage 4 chronic kidney disease, or unspecified chronic kidney disease; K76.0 Fatty (change of) liver, not elsewhere classified; E78.5 Hyperlipidemia, unspecified; I73.9 Peripheral vascular disease, unspecified; L03.115 Cellulitis of right lower limb; M86.8X7 Other osteomyelitis, ankle and foot; N18.2 Chronic kidney disease, stage 2 (mild); F17.200 Nicotine dependence, unspecified, uncomplicated; D63.8 Anemia in other chronic diseases classified elsewhere; Z86.73 Personal history of transient ischemic attack (TIA), and cerebral infarction without residual deficits; K59.00 Constipation, unspecified; Z79.899 Other long term (current) drug therapy; Z79.82 Long term (current) use of aspirin; Z91.199 Patient's noncompliance with other medical treatment and regimen due to unspecified reason; Z95.2 Presence of prosthetic heart valve